=== PATIENT | male | born 1975 | race African-American/Black ===

== ENCOUNTER → 2017-01-17 | Outpatient (CLI) | payer OTHER ==
[2017-01-17 09:44] LABS: ABSOLUTE NEUTROPHILS 2.1 thou/uL (1.4-8.2); BASOPHILS 0.7 % (0.0-2.0); EOSINOPHILS 1.8 % (0.0-3.0); HEMATOCRIT 48.2 % (42.0-52.0); HEMOGLOBIN 16.3 gm/dL (14.0-18.0); LYMPHOCYTES 42.6 % (24.0-44.0); MCH 29.5 pg (26.0-34.0); MCHC 33.9 g/dL (28.0-37.0); MONOCYTES 7.2 % (1.0-8.0); POLYS 47.7 % (36.0-66.0); RBC 5.54 mil/uL (4.50-6.00); RDW 13.5 % (10.5-14.5); WBC 4.5 thou/uL (4.0-11.0)
[2017-01-17 09:46] LABS: MANUAL DIFF NO
[2017-01-17 10:03] LABS: ANION GAP 5 mmol/L (7-16); BUN 11 mg/dL (7-18); CALCIUM 9.1 mg/dL (8.5-10.1); CHLORIDE 108 mmol/L (98-107); CO2 33 mmol/L (21-32); CREATININE 1.3 mg/dL (0.7-1.3); GLUCOSE 97 mg/dL (74-106); POTASSIUM 4.4 mmol/L (3.5-5.1); SODIUM 146 mmol/L (136-145)
[2017-01-17 10:06] LABS: ALKALINE PHOSPHATASE 47 U/L (46-116); CHOLESTEROL 164 mg/dL (<200); HDL CHOLESTEROL 31 mg/dL (>40); LDL CHOLESTEROL 104 mg/dL (<100); SGOT 23 U/L (15-37); SGPT 39 U/L (30-65); TC:HDL 5.3 Ratio (Not establshd); TOTAL BILIRUBIN 0.6 mg/dL (<0.1-1.0); TOTAL PROTEIN 7.4 g/dL (6.4-8.2); TRIGLYCERIDE 146 mg/dL (<150); VLDL 29 mg/dL (<40)
[2017-01-17 10:18] LABS: LARGE PLATELETS OCCASIONAL; PLATELET COUNT 130 thou/uL (150-400); PLATELET ESTIMATE 150
== END ==
LOC: LABMALL 08:39
PROVIDERS: Family Medicine
DX: Z00.00 Encounter for general adult medical examination without abnormal findings (principal); N50.9 Disorder of male genital organs, unspecified